=== PATIENT | female | born 1960 | race Caucasian/White ===

== ENCOUNTER 2021-12-13 17:45 | Emergency (ER) | payer OTHER ==
[~2021-12-13] VITALS: Ht 165.1 cm; Wt 140.2 kg
[~2021-12-13 17:45] MED LIST: ACET325 PO; ALBU90I INH; ALBU90OI INH; ALBU90OI61 INH; ALPR1 PO; AMIT50 PO; AMIT75; AMIT75 PO; ASPI81CH PO; ASPI81EC PO; AZIT250 PO; BISA10S PR; BISA5EC PO; BP MED?; BUDE6HFA; BUDE6HFA INH; BUPR100ER; BUPR150ER PO; BUPR150T2 PO; BUPR75; CARI350 PO; CEPH500 PO; CHOL10002 PO; CIPR500 PO; CLIN300 PO; CLON.2 PO; CLON.5; CODACE30 PO; CYCL10 PO; CYMBALTA; Cymbalta60 MG PO; DIAZ5 PO; DICL75ER PO; DOCU100 PO; DOXY100 PO; DULO60 PO; ESCI20; ESCI20 PO; FLUO10 PO; FLUO20 PO; FURO20 PO; FURO40 PO; HYDACE5 PO; HYDMOR2 PO; IBUP800 PO; LORA1; LORA2; Lasix40 MG PO; METF500 PO; METF500C PO; METO25ER PO; METR500 PO; MIRALAX17 GM PO; Micro-K10 MEQ; NEBI10 PO; OXYACE5T PO; OXYB5ER PO; OXYC10ER; Omeprazole20 M1 PO; PHENTERMINE; POLY17UD PO; POTA10T PO; POTCHL10ER PO; PRAV20 PO; PRED20 PO; PROACE100 PO; PSYL5.85P PO; RANI150 PO; RXCODACET PO; SIME80CH PO; SULTRIDS PO; TIOT18; TIOT18 IH; TIZA4 PO; TIZANIDINE HCL4 MG PO; TRAM50 PO; [UNRECOGNIZED DRUG - REMARK]; [UNRECOGNIZED DRUG - REMARK]
== END 2021-12-13 20:11 | disposition home or self-care (01) ==
LOC: ER 17:45
DX: M25.531 Pain in right wrist (principal); J44.9 Chronic obstructive pulmonary disease, unspecified; W19.XXXA Unspecified fall, initial encounter; Z79.82 Long term (current) use of aspirin; Z79.899 Other long term (current) drug therapy; Z88.0 Allergy status to penicillin; Z88.5 Allergy status to narcotic agent; Z88.8 Allergy status to other drugs, medicaments and biological substances; Z87.891 Personal history of nicotine dependence
CPT/HCPCS: 73110

== ENCOUNTER → 2022-04-16 | Outpatient (CLI) | payer OTHER ==
[2022-04-16 17:46] LABS: Microalb/Creat Ratio UR, Rand Unable to Calculate mg/g (0.000-30.000); Microalbumin, Random Urine <5.000 mg/L (0.000-20.000)
== END | disposition home or self-care (01) ==
LOC: LAB SHORT 14:31 → LAB 14:31
PROVIDERS: Physician Assistant
DX: E11.9 Type 2 diabetes mellitus without complications (principal)
CPT/HCPCS: 82043; 82570

== ENCOUNTER 2024-05-22 16:16 | Emergency (ER) | payer OTHER ==
[~2024-05-22] VITALS: Ht 167.6 cm; Wt 106.6 kg
[2024-05-22 22:12] LABS: BASOPHILS ABSOLUTE AUTO 0.03 K/mm3 (0.00-0.23); BASOPHILS PERCENT AUTO 0 % (0-2); EOSINOPHILS PERCENT AUTO 1 % (0-6); Hematocrit 36.3 % (33.0-51.0); Hemoglobin 12.1 g/dL (11.5-16.0); IMMATURE GRAN ABSOLUTE AUTO 0.04 K/mm3 (0.00-0.10); IMMATURE GRAN PERCENT AUTO 1 % (0-1); LYMPHOCYTES ABSOLUTE AUTO 2.19 K/mm3 (0.84-5.20); LYMPHOCYTES PERCENT AUTO 25 % (21-46); MONOCYTES ABSOLUTE AUTO 0.59 K/mm3 (0.16-1.47); MONOCYTES PERCENT AUTO 7 % (4-13); Mean Corpuscular HGB 30.3 pg (26.0-34.0); Mean Corpuscular HGB Conc 33.3 g/dL (31.5-36.5); Mean Corpuscular Volume 91 fL (80-100); Mean Platelet Volume 11.7 fL (9.1-12.4); NEUTROPHILS ABSOLUTE AUTO 5.69 K/mm3 (1.96-9.15); NEUTROPHILS PERCENT AUTO 66 % (41-73); Platelet Count 360 K/mm3 (150-400); RDW Coefficient Variation 12.9 % (11.7-14.2); RDW Standard Deviation 42.8 fL (35.1-46.3); White Blood Cell Count 8.64 K/mm3 (4.00-11.30)
[2024-05-22 23:25] LABS: Albumin, Blood 3.2 g/dL (3.4-5.0); Albumin/Globulin Ratio 0.8 (0.8-1.8); Bilirubin, Total 0.5 mg/dL (0.1-1.0); Calcium, Blood 9.5 mg/dL (8.5-10.1); Globulin, Blood 4.1 g/dL (2.2-4.0); Total Protein, Blood 7.3 g/dL (6.4-8.2)
[2024-05-22 23:45] VITALS: BP 133/96
[2024-05-22] MEDS ORDERED: LAVAP4L PO (23:48)
[2024-05-22] MEDS ORDERED: Magic Bullet10 MG PR (23:48)
== END 2024-05-22 23:53 | disposition home or self-care (01) ==
LOC: ER 16:16
PROVIDERS: Emergency Medicine
DX: K59.00 Constipation, unspecified (principal); J44.9 Chronic obstructive pulmonary disease, unspecified; E78.00 Pure hypercholesterolemia, unspecified; G47.30 Sleep apnea, unspecified; Z87.891 Personal history of nicotine dependence; Z88.0 Allergy status to penicillin; Z91.041 Radiographic dye allergy status; Z88.5 Allergy status to narcotic agent; Z88.8 Allergy status to other drugs, medicaments and biological substances; Z79.899 Other long term (current) drug therapy
CPT/HCPCS: 74177; 80053; 83690; 85025; 99283-25; Q9967

== ENCOUNTER 2024-10-17 18:05 | Emergency (ER) | payer OTHER ==
[~2024-10-17] VITALS: Ht 162.6 cm; Wt 108.9 kg
[~2024-10-17 18:05] MED LIST changes: +LAVAP4L PO; +Magic Bullet10 MG PR
[2024-10-17] MEDS ORDERED: NS 500 ML IV SCH ×2 (18:20→19:30)
[2024-10-17 18:38] LABS: BASOPHILS ABSOLUTE AUTO 0.03 K/mm3 (0.00-0.23); BASOPHILS PERCENT AUTO 0 % (0-2); EOSINOPHILS PERCENT AUTO 4 % (0-6); Hematocrit 38.1 % (33.0-51.0); Hemoglobin 12.1 g/dL (11.5-16.0); IMMATURE GRAN ABSOLUTE AUTO 0.02 K/mm3 (0.00-0.10); IMMATURE GRAN PERCENT AUTO 0 % (0-1); LYMPHOCYTES ABSOLUTE AUTO 1.82 K/mm3 (0.84-5.20); LYMPHOCYTES PERCENT AUTO 25 % (21-46); MONOCYTES ABSOLUTE AUTO 0.57 K/mm3 (0.16-1.47); MONOCYTES PERCENT AUTO 8 % (4-13); Mean Corpuscular HGB 29.7 pg (26.0-34.0); Mean Corpuscular HGB Conc 31.8 g/dL (31.5-36.5); Mean Corpuscular Volume 94 fL (80-100); NEUTROPHILS ABSOLUTE AUTO 4.66 K/mm3 (1.96-9.15); NEUTROPHILS PERCENT AUTO 63 % (41-73); Platelet Count 213 K/mm3 (150-400); RDW Standard Deviation 44.5 fL (35.1-46.3); Red Blood Cell Count 4.07 M/mm3 (3.80-5.20)
[2024-10-17 18:47] VITALS: BP 118/69
[2024-10-17 19:16] LABS: Bun/Creatinine Ratio 7.8 (12.0-20.0); Creatinine, Blood 1.16 mg/dL (0.40-1.00); Potassium, Blood 4.2 mmol/L (3.5-5.5)
== END 2024-10-17 20:40 | disposition home or self-care (01) ==
LOC: ER 18:05
PROVIDERS: Emergency Medicine
DX: R55 Syncope and collapse (principal); J44.9 Chronic obstructive pulmonary disease, unspecified; G47.30 Sleep apnea, unspecified; Z87.891 Personal history of nicotine dependence; Z88.0 Allergy status to penicillin; Z91.041 Radiographic dye allergy status; Z88.5 Allergy status to narcotic agent; Z88.8 Allergy status to other drugs, medicaments and biological substances; Z79.899 Other long term (current) drug therapy
CPT/HCPCS: 80048; 82947; 85025; 93005; 93010; 96360; 96361; 99284-25; J7030

== ENCOUNTER 2024-12-04 07:26 | Day surgery (SDC) | payer OTHER ==
[2024-11-19 14:38] VITALS: BP 88/39
[2024-12-04] VITALS (20 sets, daily range): BP systolic 98–138; BP diastolic 48–86
[~2024-12-04] VITALS: Ht 162.6 cm; Wt 96.3 kg
[~2024-12-04 07:26] MED LIST changes: +AMITRIPTYLINE150 M1 PO; +ATOR40TA PO; +AUVELITY ER 451 EACH PO; +Chlorhexidine Mouth Care 15 ML UDC MT SCH; +KOURZEQ5 GM TOP; +LOSA25 PO; +MYRBETRIQ50 MG PO; +Norco 7.5-3251 EACH PO; +OZEMPIC0.25 MG/02 SC; +Ropivacaine 0.5% HCl/Pf 123.125 MG,EPINEPHrine HCL 0.25 MG,Ketorolac Tromethamine 15 MG... INFIL SCH; +Tranexamic Acid 100 ML IV SCH
[2024-12-04] MEDS ORDERED: OLME5TAB PO (07:38)
[2024-12-04] MEDS ORDERED: FentaNYL Citrate 50 MCG/ML 2 ML Injection ONE ×2 (07:45→12:04)
[2024-12-04] MEDS ORDERED: Midazolam HCl 1MG / ML 2ML Vial ONE ×3 (07:45→09:24)
[2024-12-04] MEDS ORDERED: CeFAZolin Sodium 2,000 MG in NS 100 ML IV SCH ×2 (07:55→17:15)
--- NOTE | 2024-12-04 08:28 | NUR ---
PT TO Day Surgery VIA WC. ABLE TO STAND FOR ACCURATE HEIGHT/WEIGHT. History, Chart, Medications and Allergies reviewed before start of procedure. Lungs clear T/O to Auscultation. Patient confirms NPO status and agrees with scheduled surgery. Pre-Op teaching done. Pt verbalizes understanding. Patient States Post-Procedure ride home has been arranged. ALL PT BELONGINGS, INCLUDING GLASSES, DENTURES AND WC GIVEN TO PT DAUGHTER LULU FOR SAFEKEEPING.
[2024-12-04] MEDS ORDERED: Dexamethasone Sod Phos 10 MG/ML 1ML VIAL ONE (09:25)
[2024-12-04] MEDS ORDERED: Ondansetron HCl 2 MG / ML 2ML Vial ONE (09:25)
[2024-12-04] MEDS ORDERED: Phenylephrine HCl 100 MCG/ML-NS 10MLSYR (1MG/10ML) ONE (09:42)
[2024-12-04] MEDS ORDERED: Triamcinolone 0.1% Lotion 60 GM TOP PRN (09:55)
[2024-12-04] MEDS ORDERED: Magnesium Hydroxide Conc 10 ML UDC PO PRN (10:05)
[2024-12-04] MEDS ORDERED: Ondansetron HCl 2 MG / ML 2ML Vial IV PRN ×2 (10:05→11:25)
[2024-12-04] MEDS ORDERED: Metoclopramide HCl 5MG / ML 2ML Vial IV PRN (10:05)
[2024-12-04] MEDS ORDERED: HYDROmorphone HCl/Pf 1MG SYR IV PRN ×3 (10:10→11:25)
[2024-12-04] MEDS ORDERED: FentaNYL Citrate 50 MCG/ML 2 ML Injection IV PRN ×2 (11:25)
[2024-12-04] MEDS ORDERED: Ketorolac Tromethamine 15mg Vial IV SCH (12:00)
[2024-12-04] MEDS ORDERED: HYDROmorphone HCl/Pf 1MG SYR ONE (12:04)
--- NOTE | 2024-12-04 13:31 | NUR ---
pt to room 217 from pacu. pt reports full sensation to r leg and able to wiggle toes and lift leg from bed. pain 9/10; medicated per order. post op vs started. buddy/prineo dressing to r knee cdi. polar pack and scds on. pt provided fluids and snacks.
[2024-12-04] MEDS ORDERED: HYDROmorphone HCl/Pf 1MG SYR IV ONE (14:55)
[2024-12-04] MEDS ORDERED: Misc. Injectable SC SCH (16:00)
[2024-12-05 04:11] VITALS: BP 102/58
[2024-12-05 05:06] LABS: BASOPHILS ABSOLUTE AUTO 0.01 K/mm3 (0.00-0.23); BASOPHILS PERCENT AUTO 0 % (0-2); EOSINOPHILS ABSOLUTE AUTO 0.02 K/mm3 (0.00-0.68); EOSINOPHILS PERCENT AUTO 0 % (0-6); Hematocrit 28.4 % (33.0-51.0); Hemoglobin 9.3 g/dL (11.5-16.0); IMMATURE GRAN ABSOLUTE AUTO 0.05 K/mm3 (0.00-0.10); IMMATURE GRAN PERCENT AUTO 0 % (0-1); LYMPHOCYTES ABSOLUTE AUTO 1.21 K/mm3 (0.84-5.20); LYMPHOCYTES PERCENT AUTO 11 % (21-46); MONOCYTES ABSOLUTE AUTO 0.79 K/mm3 (0.16-1.47); MONOCYTES PERCENT AUTO 7 % (4-13); Mean Corpuscular HGB Conc 32.7 g/dL (31.5-36.5); Mean Corpuscular Volume 94 fL (80-100); NEUTROPHILS ABSOLUTE AUTO 9.25 K/mm3 (1.96-9.15); NEUTROPHILS PERCENT AUTO 82 % (41-73); NRBC ABSOLUTE 0.00 K/mm3 (0.00-0.02); NRBC Auto 0.0 /100 WBC (0.0-0.2); Platelet Count 170 K/mm3 (150-400); RDW Coefficient Variation 13.7 % (11.7-14.2); RDW Standard Deviation 46.8 fL (35.1-46.3)
--- NOTE | 2024-12-05 05:24 | NUR ---
NOC SUMMARY- PT PAIN MANAGED WELL. PT DRESSING IS C/D/I. PT TOLERATING PO AND VOIDING. PT HAS BEEN RESTING IN NO DISTRESS. POLAR PACK IN PLACE. CALL LIGHT IN REACH.
[2024-12-05 05:34] LABS: Anion Gap 7.0 mmol/L (3-11); Blood Urea Nitrogen 18.0 mg/dL (8-24); CO2, Blood 26.0 mmol/L (21-32); Calcium, Blood 8.5 mg/dL (8.5-10.1); Chloride, Blood 107.0 mmol/L (98-108); Creatinine, Blood 1.32 mg/dL (0.40-1.00); Glucose, Blood 133.0 mg/dL (70-99); Potassium, Blood 3.8 mmol/L (3.5-5.5); Sodium, Blood 136.0 mmol/L (136-145)
[2024-12-05 07:50] VITALS: BP 112/54
[2024-12-05] MEDS ORDERED: ELIQUIS2.5 MG PO (08:10)
--- NOTE | 2024-12-05 10:39 | NUR ---
DISCHARGE ALL INSTRUCTIONS READ SIGNED AND BELONGINGS ALL PACKED UP IV TAKEN OUT INTACT. VSS. MEDICATED FOR PAIN PER EMAR. FAMILY IN ROOM ASSISTING PATIENT TO GET DRESSED. PATIENT LEAVES PRIVATE CAR.
== END 2024-12-05 10:50 | disposition home or self-care (01) ==
LOC: ORSCMMR 07:26 → ORD 08:30 → ORSCMMR 08:30 → SURS 13:17 → ORSCMMR 12-05 10:50
PROVIDERS: Orthopaedic Surgery
PROC: 0SRC0J9 Replacement of Right Knee Joint with Synthetic Substitute, Cemented, Open Approach (ICD-10-PCS; principal; 2024-12-04 08:30)
DX: M17.11 Unilateral primary osteoarthritis, right knee (principal); I10 Essential (primary) hypertension; E11.9 Type 2 diabetes mellitus without complications; J44.9 Chronic obstructive pulmonary disease, unspecified; G47.33 Obstructive sleep apnea (adult) (pediatric); E78.00 Pure hypercholesterolemia, unspecified; F32.A Depression, unspecified; K21.9 Gastro-esophageal reflux disease without esophagitis; E66.9 Obesity, unspecified; Z68.36 Body mass index [BMI] 36.0-36.9, adult; Z79.899 Other long term (current) drug therapy; Z79.85 Long-term (current) use of injectable non-insulin antidiabetic drugs
CPT/HCPCS: 36415; 73560-RT; 80048; 82947; 85025; 97116; 97162; 97530; A9270; C1713; C1776; J0165; J0690; J0735; J1100; J1171; J1885; J2250; J2371; J2405; J2704; J2795; J3010; J7120